=== PATIENT | female | born 2005 | race Two or more races ===

== ENCOUNTER 2024-05-15 22:07 | Emergency (ER) | payer OTHER | END 2024-05-16 00:03 | disposition home or self-care (01) | LOC: ER 23:22 | DX: I51.9 Heart disease, unspecified (principal); Z53.21 Procedure and treatment not carried out due to patient leaving prior to being seen by health care provider ==

== ENCOUNTER 2025-01-17 21:36 | Emergency (ER) | payer OTHER ==
[~2025-01-17] VITALS: Ht 154.9 cm; Wt 68.0 kg
[2025-01-17] MEDS: ADENOSINE 6 MG/2 ML VIAL IVP ONE (22:07)
[2025-01-17 22:22] LABS: PLATELET COUNT (AUTO) 304 K/uL (150-450); RED BLOOD CELL COUNT(AUTO) 4.73 MIL/uL (4.0-5.2); RED CELL DISTRIBUTION WIDTH 13.1 % (11.5-15.0); WHITE BLOOD COUNT (AUTO) 5.9 K/uL (4.3-11.0)
[2025-01-17] MEDS: IV NS 0.9% 1,000 ML BAG IV ONE (22:30)
[2025-01-17 22:31] LABS: CALCIUM, SERUM 8.6 mg/dL (8.5-10.1); CREATININE 0.6 mg/dL (0.6-1.3); SODIUM SERUM 140.0 mmol/L (136-145); UREA NITROGEN, BLOOD 6.0 mg/dL (7-18)
[2025-01-17 22:58] LABS: PREGNANCY TEST SERUM QUAN 6010.0 mIU/mL (0-6)
[2025-01-17 23:20] LABS: APPEARANCE,URINE CLEAR (CLEAR); BLOOD, URINE TRACE Ery/uL (NEGATIVE); LEUKOCYTE ESTERASE ,URINE 3+ (NEGATIVE); NITRITE, URINE NEGATIVE (NEGATIVE); UGLUCOSE NEGATIVE (NEGATIVE)
[2025-01-17 23:37] LABS: AMPHETAMINE, URINE NEGATIVE (NEGATIVE); BARBITURATE, URINE NEGATIVE (NEGATIVE); BENZODIAZEPINE, URINE NEGATIVE (NEGATIVE); COCCAINE, URINE NEGATIVE (NEGATIVE); OPIATE, URINE NEGATIVE (NEGATIVE)
[2025-01-17 23:43] LABS: CANNABINOID, URINE POSITIVE (NEGATIVE)
[2025-01-17 23:44] LABS: SQUAMOUS EPITHELIAL CELL,UR Many /HPF (None Seen)
[2025-01-17 23:45] LABS: ADD URINE CULTURE YES
[2025-01-18 00:46] VITALS: BP 122/74; TEMP 98.4; O2SAT 98
== END 2025-01-18 00:47 | disposition home or self-care (01) ==
LOC: ER 21:37
DX: O99.411 Diseases of the circulatory system complicating pregnancy, first trimester (principal); I47.10 Supraventricular tachycardia, unspecified; R00.2 Palpitations; R11.0 Nausea; R42 Dizziness and giddiness; R10.2 Pelvic and perineal pain; Z3A.00 Weeks of gestation of pregnancy not specified
CPT/HCPCS: 99285; 96374; 76805; 71045; 96361; 93005 ×2; 85025; 80048; 87086; 83735; 81001; 36415; 84702; 80307; J0153; J7030

== ENCOUNTER 2025-05-31 14:03 | Emergency (ER) | payer MEDICAID, OTHER ==
[~2025-05-31] VITALS: Ht 154.9 cm; Wt 68.0 kg
[2025-05-31 14:12] VITALS: BP 122/62; TEMP 98
[2025-05-31] MEDS ORDERED: IBUP-1957 PO (15:38)
[2025-05-31] MEDS ORDERED: ACET325C7 PO (15:38)
[2025-05-31 15:43] LABS: PREGNANCY TEST URINE QUAL POSITIVE (NEGATIVE)
[2025-05-31] MEDS ORDERED: ACETAMINOPHEN ES 500 MG TABLET ONE (15:46)
[2025-05-31] MEDS ORDERED: ACETAMINOPHEN 325 MG TABLET ONE (15:49)
[2025-05-31] MEDS: ACETAMINOPHEN 325 MG TABLET PO ONE (15:51)
[2025-05-31 15:53] VITALS: O2SAT 97
== END 2025-05-31 15:54 | disposition home or self-care (01) ==
LOC: ER 14:27
DX: M79.644 Pain in right finger(s) (principal); Z79.1 Long term (current) use of non-steroidal anti-inflammatories (NSAID); W23.2XXA Caught, crushed, jammed or pinched between a moving and stationary object, initial encounter; Y93.89 Activity, other specified; Y92.89 Other specified places as the place of occurrence of the external cause; Y99.9 Unspecified external cause status
CPT/HCPCS: 73140-TC; 84703-TC

== ENCOUNTER 2025-06-16 22:23 | Emergency (ER) | payer MEDICAID ==
[~2025-06-16] VITALS: Ht 165.1 cm; Wt 67.1 kg
[~2025-06-16 22:23] MED LIST: ACET325C7 PO; IBUP-1957 PO
[2025-06-17 02:13] LABS: PLATELET COUNT (AUTO) 293 K/uL (150-450); RED BLOOD CELL COUNT(AUTO) 4.15 MIL/uL (4.0-5.2); RED CELL DISTRIBUTION WIDTH 13.3 % (11.5-15.0); WHITE BLOOD COUNT (AUTO) 12.5 K/uL (4.3-11.0)
[2025-06-17 02:20] LABS: CALCIUM, SERUM 9.1 mg/dL (8.5-10.1); CREATININE 0.9 mg/dL (0.6-1.3); SODIUM SERUM 136.0 mmol/L (136-145); UREA NITROGEN, BLOOD 13.0 mg/dL (7-18)
[2025-06-17 02:26] LABS: INR 1.06 (0.91-1.10)
[2025-06-17 03:24] VITALS: BP 129/70; TEMP 98.4; O2SAT 98
== END 2025-06-17 03:24 | disposition home or self-care (01) ==
LOC: ER 22:27
DX: O03.9 Complete or unspecified spontaneous abortion without complication (principal); N93.8 Other specified abnormal uterine and vaginal bleeding; I51.9 Heart disease, unspecified; Z79.1 Long term (current) use of non-steroidal anti-inflammatories (NSAID); Z87.59 Personal history of other complications of pregnancy, childbirth and the puerperium; Z79.899 Other long term (current) drug therapy; Z98.890 Other specified postprocedural states
CPT/HCPCS: 36415; 80048-TC; 85025-TC; 85610-TC; 86850-TC